=== PATIENT | female | born 1990 | race Caucasian/White ===

== ENCOUNTER 2021-03-17 19:59 | Emergency (ER) | payer MEDICAID ==
[~2021-03-17] VITALS: Ht 165.1 cm; Wt 70.3 kg
--- NOTE | 2021-03-17 20:30 | NUR ---
MD Spangler at bedside to do MSE.
[2021-03-17] MEDS ORDERED: IV NORMAL SALINE 1000 ML BAG IV ONE (20:45)
[2021-03-17 21:26] LABS: ALANINE AMINOTRANSFERASE 32 U/L (14-59); ALKALINE PHOSPHATASE 57 U/L (50-136); ASPARTATE AMINOTRANSFERASE 19 U/L (15-37); BILIRUBIN,DIRECT < 0.1 mg/dL (0.0-0.2); BILIRUBIN,TOTAL 0.2 mg/dL (0.2-1.0); CARBON DIOXIDE 26 mmol/L (21-32); CHLORIDE 108 mmol/L (98-107); CREATININE 0.8 mg/dL (0.6-1.3); GLUCOSE 121 mg/dL (74-106); UREA NITROGEN, BLOOD 15 mg/dL (7-18)
[2021-03-17 21:33] LABS: HEMATOCRIT 37.2 % (31.2-41.9); MEAN CORPUSCULAR HEMOGLOBIN 32.6 uug (24.7-32.8); MEAN CORPUSCULAR VOLUME 100.6 fL (75.5-95.3); PLATELET COUNT (AUTO) 302 K/uL (179-408)
[2021-03-17 23:03] LABS: ETHANOL < 3 MG/DL (0-0)
--- NOTE | 2021-03-17 23:10 | NUR ---
Patient out to CT scan.
[2021-03-17] MEDS ORDERED: TDAP DIPH,PERTUSS,TET VAC/PF 0.5 ML DISP.SYRIN IM ONE ×2 (23:15→23:49)
--- NOTE | 2021-03-17 23:40 | NUR ---
Patient refusing redraw of LACTIC ACID draw per center medical and lab director Belle. MD Spangler made aware.
--- NOTE | 2021-03-18 | NUR ---
Patient sleeping on bed, eyes closed. No acute distress noted.
[2021-03-18 00:05] LABS: *BILIRUBIN,URIN NEGATIVE (NEGATIVE); *BLOOD, URINE 1+ (NEGATIVE); *CLARITY,URINE CLOUDY (CLEAR); *COLOR,URINE YELLOW (YELLOW); *KETONES,URINE TRACE (NEGATIVE); *UROBILINOGEN,URINE 0.2 E.U./dl (NORMAL); LEUKOCYTE ESTERASE ,URINE 2+ (NEGATIVE); NITRITE, URINE NEGATIVE (NEGATIVE); UGLUCOSE NEGATIVE (NEGATIVE)
[2021-03-18 00:25] LABS: *URINE HCG, QUAL NEGATIVE (NEGATIVE); BACTERIA,URINE MODERATE /HPF (NONE SEEN); SQUAMOUS EPITHELIAL CELL,UR MANY /HPF (NONE SEEN); WBC,URINE 20-50 /HPF (0-3)
[2021-03-18 00:39] LABS: *AMPHETAMINE, URINE NEGATIVE (NEGATIVE); *CANNABINOID, URINE POSITIVE (NEGATIVE); *COCCAINE, URINE NEGATIVE (NEGATIVE); *OPIATE, URINE NEGATIVE (NEGATIVE); *PHENCYCLIDINE SCREEN,URINE NEGATIVE (NEGATIVE)
[2021-03-18] MEDS ORDERED: CEFTRIAXONE 1 G in IV DEXTROSE 5% 50 ML IV ONE (01:00)
[2021-03-18] MEDS ORDERED: NITR100C11 PO (01:09)
[2021-03-18] MEDS ORDERED: CEFTRIAXONE 1 G VIAL ONE (01:18)
--- NOTE | 2021-03-18 01:49 | NUR ---
Patient discharged to home in stable condition. Written and verbal after care instructions given. Patient verbalizes understanding of instructions. Stressed follow up or return to ER for worsening s/s. Patient ambulates with steady gait, V/S stable, IV line removed, and left with all personal belongings.
[2021-03-18 01:50] VITALS: BP 100/60
== END 2021-03-18 01:50 | disposition home or self-care (01) ==
LOC: ER 20:03
DX: R55 Syncope and collapse (principal); R94.31 Abnormal electrocardiogram [ECG] [EKG]; S01.81XA Laceration without foreign body of other part of head, initial encounter; W18.39XA Other fall on same level, initial encounter; Y92.512 Supermarket, store or market as the place of occurrence of the external cause
CPT/HCPCS: 36415; 70450; 80048; 80076; 80307; 80320; 81001; 83605; 84484; 84702; 84703; 85025; 85730; 87040 ×2; 87086; 90471; 90715; 93005; 96361; 96374; 99285; J0696; 70030-TC; A4217; G0480; J7030